=== PATIENT | female | born 1975 | race African-American/Black ===

== ENCOUNTER 2019-11-11 12:02 | Inpatient (IN) ==
[2019-11-11 12:57] LABS: Basophils % 0.2 % (0.0-0.8); Eosinophils % 0.2 % (0.00-10.9); Hematocrit 43.8 VOL% (35.7-47.0); Immature Granulocytes % 0.6 %; Immature Granulocytes Absolute 0.03 #; Lymphocytes # 1.6 10*3/uL (1.4-4.0); Mean Corpuscular Volume 89.8 FL (87-102); Mean Platelet Volume 9.9 FL (9.6-12.0); Monocytes % 10.4 % (1.7-12.7); Neutrophils % 58.6 % (38.7-73.9); Platelet Count 330 T/CUMM (130-400); Red Blood Count 4.88 MC/CUMM (3.8-5.5); Red Cell Distribution Width 11.9 % (9.3-17.3); White Blood Count 5.4 T/CUMM (4-12)
[2019-11-11 13:19] LABS: Albumin 3.7 G/DL (3.4-5.0); Bilirubin,Total 0.9 MG/DL (0.2-1.0); Calcium 9.8 MG/DL (8.5-10.1); Total Protein 9.5 G/DL (6.4-8.3)
[2019-11-11] MEDS ORDERED: POTASSIUM CHLORIDE RIDER 10 MEQ in PREMIX 1 EACH IV PRN (15:07)
[2019-11-11] MEDS ORDERED: ALBUTEROL 2.5 MG/3 ML NEB RESP TX PRN (15:08)
[2019-11-11] MEDS ORDERED: MULTIVITAMIN (CENTRUM) TABLET PO PRN (15:08)
[2019-11-11] MEDS ORDERED: IBUPROFEN 200 MG TABLET PO PRN (15:08)
[2019-11-11] MEDS ORDERED: PHENYLEPHRINE 0.125% NASAL DROPS 15 ML BOTTLE BOTH NARES PRN (15:08)
[2019-11-11] MEDS ORDERED: ACETAMINOPHEN 325 MG TABLET PO PRN (15:08)
[2019-11-11] MEDS: SODIUM CHLORIDE 0.9% 1,000 ML IV SCH (17:39)
[2019-11-11] MEDS ORDERED: FAMOTIDINE 20 MG TABLET PO SCH (21:00)
[2019-11-11] MEDS ORDERED: RANITIDINE 150 MG TABLET PO SCH (21:00)
[2019-11-12 06:39] LABS: Calcium 9.2 MG/DL (8.5-10.1)
[2019-11-12 07:22] LABS: Basophils % 0.4 % (0.0-0.8); Eosinophils % 0.6 % (0.00-10.9); Hematocrit 38.1 VOL% (35.7-47.0); Hemoglobin 12.2 GM/DL (12.0-16.0); Immature Granulocytes % 0.2 %; Immature Granulocytes Absolute 0.01 #; Lymphocytes # 1.9 10*3/uL (1.4-4.0); Lymphocytes % 37.3 % (21.3-54.2); Mean Corpuscular Volume 90.5 FL (87-102); Mean Platelet Volume 9.6 FL (9.6-12.0); Monocytes % 13.5 % (1.7-12.7); Platelet Count 268 T/CUMM (130-400); Red Blood Count 4.21 MC/CUMM (3.8-5.5); Red Cell Distribution Width 12.1 % (9.3-17.3); White Blood Count 5.1 T/CUMM (4-12)
[2019-11-12] MEDS: SODIUM CHLORIDE 0.9% 1,000 ML IV SCH ×2 (07:50→21:43)
[2019-11-12 16:26] LABS: Immunoglobulin A (Chem) 519 MG/DL (70-400); Immunoglobulin G (Chem) 2320 MG/DL (700-1600); Immunoglobulin M (Chem) 52 MG/DL (40-230)
[2019-11-12] MEDS: ASPIRIN CHEW 81 MG TABLET PO SCH (16:44)
[2019-11-12] MEDS: FAMOTIDINE 8 MG/ML 50 ML/BOTTLE PO SCH ×2 (16:44→21:44)
[2019-11-13 05:54] LABS: Basophils % 0.4 % (0.0-0.8); Eosinophils # 0.1 10*3/uL (0.0-0.87); Eosinophils % 1.7 % (0.00-10.9); Hematocrit 38.6 VOL% (35.7-47.0); Hemoglobin 12.1 GM/DL (12.0-16.0); Immature Granulocytes % 0.4 %; Immature Granulocytes Absolute 0.02 #; Lymphocytes % 38.3 % (21.3-54.2); Mean Corpuscular HGB Conc 31.3 GM/DL (32-36); Mean Corpuscular Volume 91.3 FL (87-102); Monocytes % 14.6 % (1.7-12.7); Neutrophils % 44.6 % (38.7-73.9); Red Blood Count 4.23 MC/CUMM (3.8-5.5); Red Cell Distribution Width 12.2 % (9.3-17.3); White Blood Count 5.3 T/CUMM (4-12)
[2019-11-13 06:02] LABS: Platelet Count 105 T/CUMM (130-400)
[2019-11-13 06:06] LABS: Calcium 9.1 MG/DL (8.5-10.1); Osmolality,Calculated 269.8 MOS/KG (273-304)
[2019-11-13 06:15] LABS: Hypochromasia 1+; Microcytosis 1+
[2019-11-13] MEDS ORDERED: LACTATED RINGERS 1,000 ML IV SCH (06:30)
[2019-11-13] MEDS: SODIUM CHLORIDE 0.9% 1,000 ML IV SCH (09:02)
[2019-11-13] MEDS: ASPIRIN CHEW 81 MG TABLET PO SCH (09:05)
[2019-11-13] MEDS: FAMOTIDINE 8 MG/ML 50 ML/BOTTLE PO SCH (09:05)
[2019-11-13 12:07] VITALS: BP 142/82
[2019-11-14 10:11] LABS: Anti-Nuclear Antibody Pattern SPECKLED
[2019-11-15 08:39] LABS: Double Stranded DNA Antibodies < 25.0 IU/ML
[2019-11-20 11:39] LABS: Anti SS-A Antibodies > 100 EU/ML
== END 2019-11-13 13:52 | disposition home or self-care (01) | DRG 254 ==
LOC: N.ED 12:02 → N.EDINP 14:41 → SUATTDRO 14:41 → N.EDINP 15:40 → N.2E 16:13 → N.5E 11-12 21:05
PROVIDERS: ADMIT Emergency Medicine; ATTEND Internal Medicine